=== PATIENT | male | born 1945 | race Caucasian/White ===

== ENCOUNTER 2018-03-22 07:12 | Day surgery (SDC) | payer BC, OTHER ==
[2018-03-22] MEDS ORDERED: NA CHLORIDE 0.9% 500 ML ONE (08:39)
[2018-03-22] MEDS ORDERED: FENTANYL CITR 100 MCG/2 ML ONE (09:33)
[2018-03-22] MEDS ORDERED: MIDAZOLAM HCL 2 MG/2 ML INJ ONE ×2 (09:33→09:41)
[2018-03-22] MEDS ORDERED: LIDOCAINE 1% MPF 2 ML AMPULE ONE (09:36)
[2018-03-22] MEDS ORDERED: HEPA 1000U/500MLS 2,000 UNIT/1,000 ML BAG IV ONE (09:36)
[2018-03-22] MEDS ORDERED: HEPARIN 5000 UNIT/ML 1 ML VIAL ONE (09:59)
[2018-03-22] MEDS ORDERED: CLOPIDOGREL 75 MG TABLET ONE ×2 (10:18→10:31)
--- NOTE | 2018-03-22 18:33 | OP ---
Date of Procedure: 03/22/2018 Surgeon: Isaac Mclain MD Radiation Control Specialist: Elayne Perkins. Plavix was given 300 mg load and the patient will go home on his home medication plus Plavix 75 mg da candi. He will be able to go home today. Admitted as an outpatient to the director of cardiac cath lab today, 03/22/2018. Procedure: Abdominal angiogram with runoff with right common iliac artery stent. Indication: The patient is 72 years old, had classic claudication, abnormal arterial Doppler in the right common iliac artery. Description Of Procedure: He was brought as an outpatient to the director of cardiac cath lab, prepped and draped in the routine sterile fashion. A 6-Welsh sheath was introduced in the right common femoral artery. Magui o-Seal was used to close the case. The pigtail was advanced initially over a J-wire and an abdominal angiogram with runoff was done showing an 80% right common iliac artery stenosis at the ostium. He had normal renals, normal distal aorta, normal SFAs, and vessels below the knee. We chose a [place] w les to cross the lesion and an OmniLink 8 x 39 balloon expandable stent was placed at the lesion with 0% residual. There were no complications. Blood Loss: 5 CC. Postoperative Diagnosis: Peripheral artery disease status post successful stent of the right common iliac artery. Conscious Sedation: 45 minutes. SANDOVAL/MANUELA Voice ID: [id number] Report ID: [id number]
== END 2018-03-22 13:42 | disposition home or self-care (01) ==
LOC: CCL 07:12
PROC: 047C3DZ Dilation of Right Common Iliac Artery with Intraluminal Device, Percutaneous Approach (ICD-10-PCS; principal; 2018-03-22)
PROC: B410YZZ Fluoroscopy of Abdominal Aorta using Other Contrast (ICD-10-PCS; 2018-03-22)
DX: I70.213 Atherosclerosis of native arteries of extremities with intermittent claudication, bilateral legs (principal); F17.210 Nicotine dependence, cigarettes, uncomplicated; E78.6 Lipoprotein deficiency; I10 Essential (primary) hypertension
CPT/HCPCS: 36200; 37221 ×2; 75630; C1725; C1760; C1893; J1644; J2001; J2250 ×2; J3010

== ENCOUNTER 2019-05-31 14:14 | Emergency (ER) | payer OTHER ==
[2019-05-31] MEDS ORDERED: METHYLPREDNISOLONE 125 MG INJ ONE (14:39)
[2019-05-31] MEDS ORDERED: ALBUTEROL 2.5 MG/3 ML NEB SOL ONE (14:40)
[2019-05-31 15:06] LABS: Absolute Lymphocytes (CBC) 2.4 K/uL (0.7-4.9); Basophils % 0.4 % (0-1.3); Hematocrit 46.7 % (39.6-49.0); Lymphocytes % 21.9 % (15.3-44.8); MPV 9.4 fL (7.6-11.3); RBC Red Blood Cell Count 5.02 M/uL (4.33-5.43)
--- NOTE | 2019-05-31 15:22 | RAD REPORT ---
EXAM DESCRIPTION: RAD - Chest Single View - 05/31/2019 2:54 pm CLINICAL HISTORY: COUGH Chest pain. COMPARISON: Chest Pa And Lat (2 Views) dated 03/17/2018; CHEST SINGLE VIEW dated 11/02/2012; CHEST PA A ND LAT 2 VIEW dated 03/05/2004 FINDINGS: Portable technique limits examination quality. Mild interstitial prominence. Heart is mildly enlarged in size. No displaced fractures. IMPRESSION: Mild interstitial prominence is seen which could indicate reactive airway disease, viral bronchitis or mild interstitial pulmonary edema.
--- NOTE | 2019-05-31 15:32 | EDPHYS ---
Physician Documentation [facility] Name: Flako Ambrose Age: 73 yrs Sex: Male : 1945 Arrival Date: 05/31/2019 Time: 14:16 Bed 6 Private MD: Eleazar Plascencia V ED Physician Zay Friedman HPI: 05/31 14:54 This 73 yrs old Male presents to ER via Ambulatory with complaints of jr8 Breathing Difficulty, Cough. 14:54 Onset: The symptoms/episode began/occurred yesterday. The patient's shortness of breath jr8 is aggravated by coughing. Associated signs and symptoms: Pertinent negatives: chest pain, productive cough, diaphoresis, dizziness, fever. Severity of symptoms: At their worst the symptoms were mild. Cough for the last three days, worse this morning, cough is non-productive. . Historical: - Allergies: 14:22 Aspirin; hb - Home Meds: 14:22 amlodipine oral [Active]; finasteride oral oral [Active]; Lipitor Oral [Active]; Nexium hb Oral [Active]; - PMHx: 14:22 Hypertension; hb - PSHx: 14:22 Stent - Right groin; Cholecystectomy; Knee - Left; hb - Immunization history:: Adult Immunizations up to date. - Social history:: Smoking status: Patient uses tobacco products, smokes one-half pack cigarettes per day. - Ebola Screening: : No symptoms or risks identified at this time. ROS: 14:54 Constitutional: Negative for fever, chills, and weight loss. jr8 14:54 Eyes: Negative for injury, pain, redness, and discharge, ENT: Negative for injury, pain, and discharge, Neck: Negative for injury, pain, and swelling, Cardiovascular: Negative for chest pain, palpitations, and edema, Abdomen/GI: Negative for abdominal pain, nausea, vomiting, diarrhea, and constipation, Back: Negative for injury and pain, MS/Extremity: Negative for injury and deformity, Neuro: Negative for headache, weakness, numbness, tingling, and seizure. 14:54 Respiratory: Positive for cough, with no reported sputum, Negative for hemoptysis, orthopnea, pleurisy, sputum production, wheezing. Exam: 14:56 Constitutional: This is a well developed, well nourished patient who is awake, alert, jr8 and in no acute distress. Head/Face: Normocephalic, atraumatic. Eyes: Pupils equal round and reactive to light, extra-ocular motions intact. Lids and lashes normal. Conjunctiva and sclera are non-icteric and not injected. Cornea within normal limits. Periorbital areas with no swelling, redness, or edema. ENT: Nares patent. No nasal discharge, no septal abnormalities noted. Tympanic membranes are normal and external auditory canals are clear. Oropharynx with no redness, swelling, or masses, exudates, or evidence of obstruction, uvula midline. Mucous membranes moist. Neck: Trachea midline, no thyromegaly or masses palpated, and no cervical lymphadenopathy. Supple, full range of motion without nuchal rigidity, or vertebral point tenderness. No Meningismus. Chest/axilla: Normal chest wall appearance and motion. Nontender with no deformity. No lesions are appreciated. Cardiovascular: Regular rate and rhythm with a normal S1 and S2. No gallops, murmurs, or rubs. Normal PMI, no JVD. No pulse deficits. Respiratory: Lungs have equal breath sounds bilaterally, clear to auscultation and percussion. No rales, rhonchi or wheezes noted. No increased work of breathing, no retractions or nasal flaring. Abdomen/GI: Soft, non-tender, with normal bowel sounds. No distension or tympany. No guarding or rebound. No evidence of tenderness throughout. Back: No spinal tenderness. No costovertebral tenderness. Full range of motion. Skin: Warm, dry with normal turgor. Normal color with no rashes, no lesions, and no evidence of cellulitis. 14:56 Respiratory: the patient does not display signs of respiratory distress, Respirations: normal, Breath sounds: are clear throughout, Respiratory rate: 16 Vital Signs: 14:20 BP 159 / 75; Pulse 110; Resp 16; Temp 97.9; Pulse Ox 96% on R/A; Weight 79.38 kg; hb Height 5 ft. 7 in. (170.18 cm); Pain 0/10; 14:20 Body Mass Index 27.41 (79.38 kg, 170.18 cm) hb MDM: 14:27 Patient medically screened. [facility] 15:31 Data reviewed: vital signs, nurses notes, lab test result(s), radiologic studies, plain jr8 films. Data interpreted: Pulse oximetry: on room air is 96 %. Interpretation: normal. Counseling: I had a detailed discussion with the patient and/or guardian regarding: the historical points, exam findings, and any diagnostic results supporting the discharge/admit diagnosis, lab results, radiology results, the need for outpatient follow up, a family practitioner, to return to the emergency department if symptoms worsen or persist or if there are any questions or concerns that arise at home. Response to treatment: the patient's symptoms have mildly improved after treatment. 05/31 14:33 Order name: CBC with Diff; Complete Time: 15:24 jr8 05/31 14:33 Order name: Basic Metabolic Panel; Complete Time: : jr8 05/31 14:33 Order name: Chest Single View XRAY; Complete Time: : jr8 Administered Medications: 14:43 Drug: Albuterol 2.5 mg Route: Inhalation; ss 14:43 Drug: SOLU-Medrol 125 mg Route: IVP; Site: right antecubital; ss 15:38 Follow up: Response: No adverse reaction; Marked relief of symptoms ss 15:39 Drug: Tussionex Pennkinetic ER 5 ml Route: PO; sg Disposition: 16:00 Co-signature as Attending Physician, Zay Friedman MD. rn Disposition: 05/31/19 15:31 Discharged to Home. Impression: Acute bronchitis. - Condition is Stable. - Discharge Instructions: Acute Bronchitis, Adult. - Prescriptions for Prednisone 20 mg Oral Tablet - take 1 tablet by ORAL route once daily for 5 days; 5 tablet. Albuterol Sulfate 90 mcg/actuation - inhale 1-2 puff by INHALATION route every 4-6 hours; 1 Inhaler. Guaifenesin AC 10- 100 mg/5 mL Oral Liquid - take 10 milliliter by ORAL route every 4 hours As needed; 240 milliliter. - Medication Reconciliation Form, Thank You Letter, Antibiotic Education, Prescription Opioid Use form. - Follow up: Eleazar Plascencia MD; When: 5 - 6 days; Reason: Recheck today's complaints, Continuance of care, Re-evaluation by your physician. - Problem is new. - Symptoms have improved. Signatures: Dispatcher [employer] Alphonse Akins RN RN sg Nieto, Roman, MD MD rn Smirch, Marline, RN RN ss Osmar Ybarra PA PA jr8 Kina Jasso RN RN Corrections: (The following items were deleted from the chart) 15:43 15:31 05/31/2019 15:31 Discharged to Home. Impression: Acute bronchitis. Condition is sg Stable. Forms are Medication Reconciliation Form, Thank You Letter, Antibiotic Education, Prescription Opioid Use. Follow up: Eleazar Plascencai; When: 5 - 6 days; Reason: Recheck today's complaints, Continuance of care, Re-evaluation by your physician. Problem is new. Symptoms have improved. jr8
--- NOTE | 2019-05-31 15:32 | ER ---
Nurse's Notes [facility] Name: Flako Ambrose Age: 73 yrs Sex: Male : 1945 Arrival Date: 05/31/2019 Time: 14:16 Bed 6 Private MD: Eelazar Plascencia V Diagnosis: Acute bronchitis Presentation: 05/31 14:18 Presenting complaint: SOB and cough since this morning. Denies pain. Transition of hb care: patient was not received from another setting of care. Onset of symptoms was May 31, 2019. Risk Assessment: Do you want to hurt yourself or someone else? Patient reports no desire to harm self or others. Initial Sepsis Screen: Does the patient meet any 2 criteria? No. Patient's initial sepsis screen is negative. Does the patient have a suspected source of infection? No. Patient's initial sepsis screen is negative. Care prior to arrival: None. 14:18 Method Of Arrival: Ambulatory hb 14:18 Acuity: AIMEE 3 hb Historical: - Allergies: 14:22 Aspirin; hb - Home Meds: 14:22 amlodipine oral [Active]; finasteride oral oral [Active]; Lipitor Oral [Active]; Nexium hb Oral [Active]; - PMHx: 14:22 Hypertension; hb - PSHx: 14:22 Stent - Right groin; Cholecystectomy; Knee - Left; hb - Immunization history:: Adult Immunizations up to date. - Social history:: Smoking status: Patient uses tobacco products, smokes one-half pack cigarettes per day. - Ebola Screening: : No symptoms or risks identified at this time. Screenin:43 Abuse screen: Denies threats or abuse. Denies injuries from another. Nutritional ss screening: No deficits noted. Tuberculosis screening: Never had TB. Fall Risk None identified. Assessment: 14:43 General: Appears in no apparent distress. comfortable, Behavior is calm, cooperative, ss Denies fever, chills. Pain: Denies pain. Neuro: Level of Consciousness is awake, alert, obeys commands, Oriented to person, place, time, situation. Cardiovascular: Denies chest pain, lightheadedness, Capillary refill < 3 seconds is brisk in bilateral fingers Rhythm is sinus tachycardia. Respiratory: Reports cough that is intermittent white phlegm Airway is patent Respiratory effort is even, unlabored, Respiratory pattern is regular, symmetrical, Breath sounds are clear bilaterally. GI: Patient currently denies abdominal pain, diarrhea, nausea, vomiting. : No signs and/or symptoms were reported regarding the genitourinary system. EENT: Nares are clear Oral mucosa is moist. Throat is clear. Derm: Skin is intact, is healthy with good turgor, Skin is dry, Skin is pink, warm \T\ dry. normal. Musculoskeletal: Circulation, motion, and sensation intact. Range of motion: intact in all extremities, Swelling absent. 15:35 Reassessment: Patient appears in no apparent distress at this time. Patient and/or ss family updated on plan of care and expected duration. Pain level reassessed. Patient is alert, oriented x 3, equal unlabored respirations, skin warm/dry/pink. Patient states feeling better. Patient states symptoms have improved. Respiratory: Respiratory effort is even, unlabored, Respiratory pattern is regular, symmetrical, Breath sounds are clear. Vital Signs: 14:20 BP 159 / 75; Pulse 110; Resp 16; Temp 97.9; Pulse Ox 96% on R/A; Weight 79.38 kg; hb Height 5 ft. 7 in. (170.18 cm); Pain 0/10; 14:20 Body Mass Index 27.41 (79.38 kg, 170.18 cm) hb ED Course: 14:16 Patient arrived in ED. rg4 14:16 Eleazar Plascencia MD is Private Physician. rg4 14:20 Triage completed. hb 14:22 Arm band placed on. hb 14:27 Osmar Ybarra PA is PHCP. jr8 14:27 Zay Friedman MD is Attending Physician. jr8 14:43 Marline Queen RN is Primary Nurse. ss 14:43 Patient has correct armband on for positive identification. Bed in low position. Call ss light in reach. 14:43 Inserted saline lock: 22 gauge in right antecubital area, using aseptic technique. ss Blood collected. 14:57 Chest Single View XRAY In Process Unspecified. EDMS 15:31 Eleazar Plascencia MD is Referral Physician. jr8 15:40 No provider procedures requiring assistance completed. IV discontinued, intact, sg bleeding controlled, No redness/swelling at site. Pressure dressing applied. Administered Medications: 14:43 Drug: Albuterol 2.5 mg Route: Inhalation; 14:43 Drug: SOLU-Medrol 125 mg Route: IVP; Site: right antecubital; 15:38 Follow up: Response: No adverse reaction; Marked relief of symptoms 15:39 Drug: Tussionex Pennkinetic ER 5 ml Route: PO; sg Outcome: 15:31 Discharge ordered by MD. hernandez 15:39 Discharged to home ambulatory, with family. 15:39 Condition: good 15:39 Discharge instructions given to patient, family, Instructed on discharge instructions, follow up and referral plans. medication usage, safety practices, Demonstrated understanding of instructions, follow-up care, medications, Prescriptions given X 2. 15:43 Patient left the ED. sg Signatures: Dispatcher [employer] EDAlphonse Childs RN RN Marline Chance RN RN Osmar Mckeon PA PA jr8 Kina Jasso RN RN hb Garcia, Rubi 4
[2019-05-31] MEDS ORDERED: HYDROCODONE/CHLORPHEN 5 ML/OSYR ONE (15:42)
[2019-05-31 15:52] VITALS: BP 159/75; TEMP 97.9; O2SAT 96
== END 2019-05-31 15:43 | disposition home or self-care (01) ==
LOC: ER 14:14
DX: J20.9 Acute bronchitis, unspecified (principal); F17.210 Nicotine dependence, cigarettes, uncomplicated; Z88.6 Allergy status to analgesic agent
CPT/HCPCS: 85025; 80048; 36415; 71045; 96374; 99285; J2930